=== PATIENT | male | born 1965 | race Caucasian/White ===

== ENCOUNTER → 2018-02-14 | Outpatient (CLI) | payer OTHER ==
[~2018-02-14] MED LIST: AZIT500 PO; Augmentin 875-1 EACH PO; CIPR500 PO; DOCU100 PO; Dicyclomine HCl20 MG PO; HYDACE5 PO; HYDGUAL120 PO; METR500 PO
[2018-02-14 09:57] LABS: BASOPHILS ABSOLUTE AUTO 0.04 K/mm3 (0.00-0.23); BASOPHILS PERCENT AUTO 1 % (0-2); EOSINOPHILS ABSOLUTE AUTO 0.06 K/mm3 (0.00-0.68); EOSINOPHILS PERCENT AUTO 1 % (0-6); Hemoglobin 16.4 g/dL (13.5-17.5); IMMATURE GRAN ABSOLUTE AUTO 0.02 K/mm3 (0.00-0.10); IMMATURE GRAN PERCENT AUTO 0 % (0-1); LYMPHOCYTES PERCENT AUTO 28 % (21-46); MONOCYTES ABSOLUTE AUTO 0.41 K/mm3 (0.16-1.47); MONOCYTES PERCENT AUTO 7 % (4-13); Mean Corpuscular HGB 31.5 pg (26.0-34.0); Mean Corpuscular HGB Conc 35.7 g/dL (31.5-36.5); Mean Corpuscular Volume 88 fL (80-100); Mean Platelet Volume 11.1 fL (9.1-12.4); NEUTROPHILS ABSOLUTE AUTO 3.69 K/mm3 (1.96-9.15); NEUTROPHILS PERCENT AUTO 64 % (41-73); Platelet Count 198 K/mm3 (150-400); RDW Coefficient Variation 11.9 % (11.7-14.2); RDW Standard Deviation 37.9 fL (35.1-46.3); Red Blood Cell Count 5.21 M/mm3 (4.30-5.90); White Blood Cell Count 5.82 K/mm3 (4.00-11.30)
[2018-02-14 10:14] LABS: Alanine Aminotransfer (ALT/SGP 73 U/L (12-78); Albumin, Blood 4.5 g/dL (3.4-5.0); Albumin/Globulin Ratio 1.4 (0.8-1.8); Alk Phos 130 U/L (40-126); Anion Gap 11 mmol/L (6-16); Aspartate Aminotrans (AST/SGOT 31 U/L (12-37); Bilirubin, Total 0.4 mg/dL (0.1-1.0); Blood Urea Nitrogen 19 mg/dL (8-24); Bun/Creatinine Ratio 21.8 (12.0-20.0); CO2, Blood 23 mmol/L (21-32); Calcium, Blood 9.1 mg/dL (8.5-10.1); Chloride, Blood 101 mmol/L (98-108); Creatinine, Blood 0.87 mg/dL (0.60-1.20); Globulin, Blood 3.2 g/dL (2.2-4.0); Glomerular Filtration Rate >60 (60-); Glucose, Blood 347 mg/dL (70-99); Potassium, Blood 4.4 mmol/L (3.5-5.5); Sodium, Blood 135 mmol/L (136-145); Thyroid Stimulating Hormone 1.351 uIU/mL (0.360-4.800); Total Protein, Blood 7.7 g/dL (6.4-8.2)
== END ==
LOC: LAB EV 09:48 → LAB SHORT 09:48
PROVIDERS: Physician Assistant
DX: E10.9 Type 1 diabetes mellitus without complications (principal); E86.0 Dehydration; R53.83 Other fatigue
CPT/HCPCS: 80053; 83036; 84443; 85025

== ENCOUNTER 2019-09-07 07:39 | Day surgery (SDC) | payer OTHER ==
[~2019-09-07] VITALS: Ht 175.3 cm; Wt 76.5 kg
[2019-09-07] MEDS ORDERED: FARXIGA5 MG (08:07)
[2019-09-07] MEDS ORDERED: METFORMIN ER1000 MG (08:08)
[2019-09-07] MEDS ORDERED: PRAV20 (08:08)
[2019-09-07] MEDS ORDERED: INSULANPEN (08:09)
--- NOTE | 2019-09-07 09:04 | NUR ---
09/07/19 0904 Ayesha Myers PATIENT NOTIFIED OF DELAY DUE TO PRIOR CASE RUNNING LONG. PATIENT COMFORTABLE, AT BEDSIDE, NO NEEDS AT THIS TIME
== END 2019-09-07 10:15 | disposition home or self-care (01) ==
LOC: ORSCSDS 07:39
PROVIDERS: Internal Medicine Gastroenterology
PROC: 0DBM8ZX Excision of Descending Colon, Via Natural or Artificial Opening Endoscopic, Diagnostic (ICD-10-PCS; principal; 2019-09-07 09:00)
PROC: 0DBN8ZX Excision of Sigmoid Colon, Via Natural or Artificial Opening Endoscopic, Diagnostic (ICD-10-PCS; principal; 2019-09-07 09:00)
DX: Z12.11 Encounter for screening for malignant neoplasm of colon (principal); Z86.010 Personal history of colon polyps; K63.5 Polyp of colon; K64.8 Other hemorrhoids; K57.30 Diverticulosis of large intestine without perforation or abscess without bleeding; E11.9 Type 2 diabetes mellitus without complications; Z79.84 Long term (current) use of oral hypoglycemic drugs; Z87.891 Personal history of nicotine dependence; Z79.4 Long term (current) use of insulin; Z79.899 Other long term (current) drug therapy
CPT/HCPCS: 82947; 88305; J2704; J7120

== ENCOUNTER 2021-09-26 10:12 | Emergency (ER) | payer OTHER ==
[~2021-09-26] VITALS: Ht 177.8 cm; Wt 79.4 kg
[~2021-09-26 10:12] MED LIST changes: +FARXIGA5 MG; +INSULANPEN; +METFORMIN ER1000 MG; +PRAV20
[2021-09-26 11:05] LABS: BASOPHILS ABSOLUTE AUTO 0.06 K/mm3 (0.00-0.23); BASOPHILS PERCENT AUTO 1 % (0-2); EOSINOPHILS ABSOLUTE AUTO 0.05 K/mm3 (0.00-0.68); EOSINOPHILS PERCENT AUTO 1 % (0-6); Hemoglobin 16.8 g/dL (13.5-17.5); IMMATURE GRAN ABSOLUTE AUTO 0.02 K/mm3 (0.00-0.10); IMMATURE GRAN PERCENT AUTO 0 % (0-1); LYMPHOCYTES ABSOLUTE AUTO 1.27 K/mm3 (0.84-5.20); LYMPHOCYTES PERCENT AUTO 19 % (21-46); MONOCYTES ABSOLUTE AUTO 0.44 K/mm3 (0.16-1.47); MONOCYTES PERCENT AUTO 7 % (4-13); Mean Corpuscular HGB 31.8 pg (26.0-34.0); Mean Corpuscular Volume 91 fL (80-100); Mean Platelet Volume 10.5 fL (9.1-12.4); NEUTROPHILS PERCENT AUTO 72 % (41-73); Platelet Count 203 K/mm3 (150-400); RDW Coefficient Variation 11.8 % (11.7-14.2); RDW Standard Deviation 39.4 fL (35.1-46.3); Red Blood Cell Count 5.28 M/mm3 (4.30-5.90); White Blood Cell Count 6.54 K/mm3 (4.00-11.30)
[2021-09-26] MEDS ORDERED: TRULICITY0.75 MG/01 SQ (11:06)
[2021-09-26] MEDS ORDERED: PIOG30 PO (11:15)
[2021-09-26] MEDS ORDERED: PRAM.5 PO (11:15)
[2021-09-26 11:19] LABS: Alanine Aminotransfer (ALT/SGP 44 U/L (12-78); Albumin, Blood 4.5 g/dL (3.4-5.0); Albumin/Globulin Ratio 1.5 (0.8-1.8); Alk Phos 91 U/L (50-136); Anion Gap 6 mmol/L (6-16); Aspartate Aminotrans (AST/SGOT 18 U/L (12-37); Bilirubin, Total 0.5 mg/dL (0.1-1.0); Blood Urea Nitrogen 21 mg/dL (8-24); Bun/Creatinine Ratio 28.5 (12.0-20.0); CO2, Blood 27 mmol/L (21-32); Calcium, Blood 9.5 mg/dL (8.5-10.1); Chloride, Blood 106 mmol/L (98-108); Creatinine, Blood 0.74 mg/dL (0.60-1.20); Glomerular Filtration Rate >60 (60-); Glucose, Blood 217 mg/dL (70-99); Potassium, Blood 4.3 mmol/L (3.5-5.5); Sodium, Blood 139 mmol/L (136-145); Total Protein, Blood 7.5 g/dL (6.4-8.2)
== END 2021-09-26 15:19 | disposition home or self-care (01) ==
LOC: ER 10:12
PROVIDERS: Physician Assistant
DX: K85.90 Acute pancreatitis without necrosis or infection, unspecified (principal); R07.9 Chest pain, unspecified; E11.9 Type 2 diabetes mellitus without complications
CPT/HCPCS: 36415; 71045; 74177; 76705; 80053; 83690; 84484; 85025; 93005; 93010; 99284-25; Q9967

== ENCOUNTER 2022-10-06 08:13 | Emergency (ER) | payer OTHER ==
[~2022-10-06] VITALS: Ht 177.8 cm; Wt 77.1 kg
[~2022-10-06 08:13] MED LIST changes: +PIOG30 PO; +PRAM.5 PO; +TRULICITY0.75 MG/01 SQ
[2022-10-06] MEDS ORDERED: Simvastatin10 MG PO (08:36)
[2022-10-06 09:11] LABS: BASOPHILS ABSOLUTE AUTO 0.03 K/mm3 (0.00-0.23); BASOPHILS PERCENT AUTO 1 % (0-2); EOSINOPHILS PERCENT AUTO 2 % (0-6); Hematocrit 45.6 % (37.0-53.0); Hemoglobin 16.1 g/dL (13.5-17.5); IMMATURE GRAN ABSOLUTE AUTO 0.02 K/mm3 (0.00-0.10); IMMATURE GRAN PERCENT AUTO 0 % (0-1); LYMPHOCYTES ABSOLUTE AUTO 1.25 K/mm3 (0.84-5.20); LYMPHOCYTES PERCENT AUTO 25 % (21-46); MONOCYTES PERCENT AUTO 8 % (4-13); Mean Corpuscular HGB 31.1 pg (26.0-34.0); Mean Corpuscular HGB Conc 35.3 g/dL (31.5-36.5); Mean Corpuscular Volume 88 fL (80-100); Mean Platelet Volume 10.4 fL (9.1-12.4); NEUTROPHILS ABSOLUTE AUTO 3.23 K/mm3 (1.96-9.15); NEUTROPHILS PERCENT AUTO 64 % (41-73); Platelet Count 185 K/mm3 (150-400); Red Blood Cell Count 5.18 M/mm3 (4.30-5.90); White Blood Cell Count 5.03 K/mm3 (4.00-11.30)
[2022-10-06 09:30] LABS: Albumin, Blood 4.1 g/dL (3.4-5.0); Albumin/Globulin Ratio 1.2 (0.8-1.8); Bilirubin, Direct 0.1 mg/dL (0.0-0.3); Bilirubin, Indirect 0.4 mg/dL (0.1-0.7); Bilirubin, Total 0.5 mg/dL (0.1-1.0); Bun/Creatinine Ratio 30.6 (12.0-20.0); Calcium, Blood 9.4 mg/dL (8.5-10.1); Creatinine, Blood 0.65 mg/dL (0.60-1.20); Globulin, Blood 3.4 g/dL (2.2-4.0); Potassium, Blood 4.1 mmol/L (3.5-5.5); Total Protein, Blood 7.5 g/dL (6.4-8.2)
== END 2022-10-06 10:48 | disposition home or self-care (01) ==
LOC: ER 08:13
PROVIDERS: Physician Assistant
DX: R10.12 Left upper quadrant pain (principal); R10.32 Left lower quadrant pain; R11.2 Nausea with vomiting, unspecified; Z79.899 Other long term (current) drug therapy; Z79.84 Long term (current) use of oral hypoglycemic drugs; E11.9 Type 2 diabetes mellitus without complications
CPT/HCPCS: 36415; 74177; 80048; 80076; 83690; 85025; 96374-59; 99284-25; J2405; Q9967

== ENCOUNTER 2024-08-01 11:48 | Emergency (ER) | payer OTHER ==
[~2024-08-01] VITALS: Ht 175.3 cm; Wt 90.7 kg
[~2024-08-01 11:48] MED LIST changes: +Simvastatin10 MG PO
[2024-08-01 12:40] LABS: BASOPHILS ABSOLUTE AUTO 0.04 K/mm3 (0.00-0.23); BASOPHILS PERCENT AUTO 1 % (0-2); EOSINOPHILS ABSOLUTE AUTO 0.11 K/mm3 (0.00-0.68); EOSINOPHILS PERCENT AUTO 2 % (0-6); Hematocrit 46.3 % (37.0-53.0); Hemoglobin 16.1 g/dL (13.5-17.5); IMMATURE GRAN ABSOLUTE AUTO 0.03 K/mm3 (0.00-0.10); IMMATURE GRAN PERCENT AUTO 1 % (0-1); LYMPHOCYTES PERCENT AUTO 28 % (21-46); MONOCYTES ABSOLUTE AUTO 0.53 K/mm3 (0.16-1.47); MONOCYTES PERCENT AUTO 8 % (4-13); Mean Corpuscular HGB Conc 34.8 g/dL (31.5-36.5); Mean Corpuscular Volume 89 fL (80-100); Mean Platelet Volume 10.4 fL (9.1-12.4); NEUTROPHILS ABSOLUTE AUTO 3.91 K/mm3 (1.96-9.15); NEUTROPHILS PERCENT AUTO 61 % (41-73); Platelet Count 214 K/mm3 (150-400); RDW Coefficient Variation 12.1 % (11.7-14.2); RDW Standard Deviation 39.4 fL (35.1-46.3); White Blood Cell Count 6.42 K/mm3 (4.00-11.30)
[2024-08-01 12:53] LABS: Albumin, Blood 4.2 g/dL (3.4-5.0); Albumin/Globulin Ratio 1.3 (0.8-1.8); Bilirubin, Total 0.4 mg/dL (0.1-1.0); Calcium, Blood 9.5 mg/dL (8.5-10.1); Creatinine, Blood 0.8 mg/dL (0.60-1.20); Globulin, Blood 3.2 g/dL (2.2-4.0); Magnesium, Blood 1.8 mg/dL (1.6-2.4); Potassium, Blood 4.8 mmol/L (3.5-5.5); Total Protein, Blood 7.4 g/dL (6.4-8.2)
[2024-08-01] MEDS ORDERED: METFORMIN HCL500 M3 PO (15:56)
[2024-08-01] MEDS ORDERED: ROSUVASTATIN CA40 MG PO (15:57)
[2024-08-01] MEDS ORDERED: INSULIN AS100 UNIT/7 (15:57)
[2024-08-01] MEDS ORDERED: PRINIVIL5 MG PO (15:57)
[2024-08-01 16:55] VITALS: BP 135/88
== END 2024-08-01 17:33 | disposition home or self-care (01) ==
LOC: ER 11:48
PROVIDERS: Student in an Organized Health Care Education/Training Program
DX: R20.0 Anesthesia of skin (principal); E11.9 Type 2 diabetes mellitus without complications
CPT/HCPCS: 70450; 71046; 80053; 83735; 84484; 85025; 93005; 93010; 99285-25

== ENCOUNTER 2024-08-08 12:22 | Observation (INO) | payer OTHER ==
[~2024-08-08] VITALS: Ht 175.3 cm; Wt 88.9 kg
[~2024-08-08 12:22] MED LIST changes: +INSULIN AS100 UNIT/7; +METFORMIN HCL500 M3 PO; +PRINIVIL5 MG PO; +ROSUVASTATIN CA40 MG PO
[2024-08-08 13:15] LABS: BASOPHILS ABSOLUTE AUTO 0.04 K/mm3 (0.00-0.23); BASOPHILS PERCENT AUTO 1 % (0-2); EOSINOPHILS PERCENT AUTO 2 % (0-6); Hematocrit 44.9 % (37.0-53.0); Hemoglobin 15.6 g/dL (13.5-17.5); IMMATURE GRAN ABSOLUTE AUTO 0.02 K/mm3 (0.00-0.10); IMMATURE GRAN PERCENT AUTO 0 % (0-1); LYMPHOCYTES ABSOLUTE AUTO 1.72 K/mm3 (0.84-5.20); LYMPHOCYTES PERCENT AUTO 29 % (21-46); MONOCYTES ABSOLUTE AUTO 0.51 K/mm3 (0.16-1.47); MONOCYTES PERCENT AUTO 9 % (4-13); Mean Corpuscular HGB 31.2 pg (26.0-34.0); Mean Corpuscular HGB Conc 34.7 g/dL (31.5-36.5); Mean Corpuscular Volume 90 fL (80-100); Mean Platelet Volume 10.5 fL (9.1-12.4); NEUTROPHILS ABSOLUTE AUTO 3.47 K/mm3 (1.96-9.15); NEUTROPHILS PERCENT AUTO 59 % (41-73); Platelet Count 193 K/mm3 (150-400); RDW Coefficient Variation 12.2 % (11.7-14.2); RDW Standard Deviation 39.8 fL (35.1-46.3); White Blood Cell Count 5.86 K/mm3 (4.00-11.30)
[2024-08-08 13:58] LABS: Albumin/Globulin Ratio 1.2 (0.8-1.8); Bilirubin, Total 0.3 mg/dL (0.1-1.0); Bun/Creatinine Ratio 23.3 (12.0-20.0); Calcium, Blood 9.7 mg/dL (8.5-10.1); Creatinine, Blood 0.77 mg/dL (0.60-1.20); Globulin, Blood 3.2 g/dL (2.2-4.0); Potassium, Blood 4.2 mmol/L (3.5-5.5); Total Protein, Blood 7.2 g/dL (6.4-8.2)
[2024-08-08] MEDS ORDERED: ASPIR 8181 M1 PO (17:14)
[2024-08-08] MEDS ORDERED: Clopidogrel Bisulfate 75 MG Tab PO ONE (17:40)
[2024-08-08] MEDS ORDERED: FLU VACC TS2024-25(6MOS UP)/PF 45 MCG/0.5 ML SYRINGE IM SCH (18:15)
[2024-08-08] MEDS ORDERED: NS 1,000 ML IV SCH (18:15)
[2024-08-08] MEDS ORDERED: Insulin Pump Cartridge MISC SC SCH (21:00)
[2024-08-08 21:29] VITALS: BP 145/96
[2024-08-08] MEDS ORDERED: Insulin Human Lispro 100 Units/ML 3ML Syringe SC SCH (22:15)
[2024-08-08] MEDS ORDERED: Insulin Glargine-Yfgn 100 Unit/mL 3 ML SYR SC SCH (22:15)
[2024-08-09 05:05] VITALS: BP 145/89
--- NOTE | 2024-08-09 05:32 | NUR ---
SHIFT SUMMARY NOC PT A/O X 4. PLEASANT AND COOPERATIVE WITH CARE. VSS. ADMIT FOR TIA WITH L SIDED N/T WHICH HAS SINCE SUBSIDED. PT CAME IN ONE WK AGO FOR SAME S/S ON 08/01/24. CAROTID DUPLEX AND HEAD CT NEGATIVE. PT HAD HEAD MRI AND ECHO SCHEDULED FOT TODAY. PT IS DM2 AND INUSLIN PUMP BECAME DISLODGED DURING CT SCAN SO PT HAS HUMALOG AC/HS LOW CS AND GLARGINE BID ORDERED FOR COVERAGE. PT HAS [facility] ON [facility], BUT AGREED TO HAVE FINGER PRICKED FOR CBG'S. PT ON TELE SINUS RHYTH IN 80'S. INFUSION OF NS @ 100 ML/HR X 1 BAG GIVEN. PT REPORTS FAMILY HX OF CVA AND CARDIAC ISSUES. PT CURRENTLY RESTING WITH BED IN LOWEST POSITION, AND CALL LIGHT WITHIN REACH.
[2024-08-09 06:12] LABS: CHOL/HDL RATIO 3.6; Cholesterol 101 mg/dL (50-200); HDL Cholesterol 28 mg/dL (>39); LDL/HDL RATIO 1.3; Low Density Lipoprotein Chol 36 mg/dL (0-110); Triglycerides 186 mg/dL (30-160); Very Low Density Lipoprot Chol 37 mg/dL (6-32)
[2024-08-09 07:38] VITALS: BP 138/91
[2024-08-09] MEDS ORDERED: Enoxaparin 40 MG/0.4 ML SYR SC SCH (09:00)
[2024-08-09] MEDS ORDERED: Atorvastatin 40 MG Tab PO SCH (09:00)
[2024-08-09] MEDS ORDERED: Lisinopril 5 MG Tab PO SCH (09:00)
[2024-08-09] MEDS ORDERED: Aspirin 81 MG Chew PO SCH (09:00)
[2024-08-09] MEDS ORDERED: Clopidogrel Bisulfate 75 MG Tab PO SCH (09:00)
[2024-08-09] MEDS ORDERED: CLOP75 PO (15:07)
--- NOTE | 2024-08-09 16:18 | NUR ---
DISCHARGE PT DC'D 1400, THIS RN DC'D IV WITHOUT COMPLICATION. TELE BOX SENT BACK BY RAMON YEAGER WHILE THIS RN WAS ON BREAK. THIS RN WENT OVER DC PAPERWORK WITH PT AND FAMILY MEMBER. DC PACKET WAS CARRIED OUT BY . PT INSISTED ON WALKING OUT, THIS RN ASKED PT TWICE IF THEY WOULD PREFER TO BE WHEELED OUT BY WHEELCHAIR, THEY CONFIRMED PT WOULD LIKE TO WALK OUT. BELONGINGS IN HAND.
== END 2024-08-09 15:53 | disposition home or self-care (01) ==
LOC: ER 12:22 → MEDS 18:12 → ERHOLD 18:12 → MEDS 21:20
PROVIDERS: Nurse Practitioner Acute Care; Student in an Organized Health Care Education/Training Program; ADMIT Internal Medicine
DX: G45.9 Transient cerebral ischemic attack, unspecified (principal); E11.9 Type 2 diabetes mellitus without complications; E78.5 Hyperlipidemia, unspecified; Z79.84 Long term (current) use of oral hypoglycemic drugs; Z79.4 Long term (current) use of insulin; Z79.899 Other long term (current) drug therapy
CPT/HCPCS: 36415; 70450; 70551; 71046; 80053; 80061; 82947; 83036; 84484; 85025; 93005; 93010; 93306; 93880; 96372; 99285-25; A9270; G0378; J1650; J1815; J7030